=== PATIENT | male | born 1970 | race African-American/Black ===

== ENCOUNTER 2022-01-18 20:02 | Emergency (ER) | payer SELFPAY ==
[2022-01-18] MEDS ORDERED: AMOX/CLAV 875 MG/125 MG TABLET PO STA (20:25)
[2022-01-18] MEDS ORDERED: LIDOCAINE 2%-EPI 1:100000 20 ML MDV SUBQ STA (20:26)
--- NOTE | 2022-01-18 21:04 | ED Physician Documentation ---
PD HPI HEAD INJURY - Stated complaint Stated Complaint: HEAD INJ - Chief complaint Chief Complaint: Trauma Hd/Nk - History obtained from History obtained from: Patient - Additional information Additional information: Patient is a 51-year-old male with a history significant for hypertension, not on blood thinners, presenting for evaluation of a head injury and dog bite that occurred just prior to arrival. Patient had 2 dogs at home that were initially playing but then became more aggressive with each other. He stepped into break up the fight. He sustained a bite to the left hand and right ankle. He fell forward and hit his head on a glass table which did not break. He had no loss of consciousness.His last tetanus was in 2016.He denies pain or injury elsewhere. Review of Systems Constitutional: denies: Fever Eyes: denies: Decreased vision Ears: denies: Ear pain Nose: denies: Congestion Cardiac: denies: Chest pain / pressure Respiratory: denies: Dyspnea GI: denies: Abdominal Pain, Vomiting Skin: reports: Laceration (s) Musculoskeletal: reports: Extremity pain. denies: Neck pain, Back pain Neurologic: reports: Head injury. denies: Syncope PD PAST MEDICAL HISTORY - Past Medical History Past Medical History: Yes Cardiovascular: Hypertension, Arrhythmia - Past Surgical History Past Surgical History: Yes General: Hiatal hernia repair Cardiovascular: AICD - Present Medications Home Medications: Ambulatory Orders Medication Instructions Recorded Confirmed Amox/Clav 875/125 [Augmentin] 1 each PO Q12H #10 tablet 01/18/22 Candesartan/Hydrochlorothiazid 1 tab PO BID 01/18/22 01/18/22 [Candesartan-Hctz 32-25 mg Tab] Carvedilol [Coreg] 6.25 mg PO DAILY 01/18/22 01/18/22 - Allergies Allergies/Adverse Reactions: Allergies Allergy/AdvReac Type Severity Reaction Status Date / Time No Known Drug Allergies Allergy Verified 01/18/22 20:06 - Social History Does the pt smoke?: Yes Smoking Status: Current every day smoker Does the pt have substance abuse?: No - Immunizations Immunizations are current?: Yes PD ED PE NORMAL - General General: Alert and oriented X 3, No acute distress, Well developed/nourished - HEENT HEENT: PERRL, EOMI, Ears normal, Pharynx benign, Other (No corado signs or ra ccoon eyes; 2 cm linear laceration to right forehead) - Neck Neck: Supple, no meningeal sign, No bony TTP, C-Spine cleared by NEXUS criteria - Cardiac Cardiac: RRR, No murmur, Strong equal pulses - Respiratory Respiratory: No respiratory distress, Clear bilaterally - Back Back: No spinal TTP - Derm Derm: Warm and dry - Extremities Extremities: Other (Puncture wounds to left hand and right ankle, no bony tenderness, full range of motion at all joints, brisk cap refill With strong distal pulses In all extremities, motor and sensation intact in all extremities) - Neuro Neuro: Alert and oriented X 3, 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, No motor deficit, No sensory deficit, Normal speech Eye Opening: Spontaneous Motor: Obeys Commands Verbal: Oriented GCS Score: 15 - Psych Psych: Normal mood PD ED PE EXPANDED - HEENT HEENT: Head injury HEENT Visual: 1 - laceration, swelling - Extremities AMBROSE UE/Hands Visual: 1 - swelling (contusion), deformity (2 puncture wounds) AMBROSE LE visual: 1 - abrasion Results - Vitals Vitals: Vital Signs - 24 hr 01/18/22 01/18/22 20:06 21:06 Temperature 36.5 C Heart Rate 90 81 Respiratory 16 16 Rate Blood Pressure 149/84 H 138/79 H O2 Saturation 100 99 Oxygen O2 Source Room air Procedures - Laceration (location) R forehead Length in cm: 2.5 Wound type: Linear, Clean Anesthesia: Lidocaine 2% with epi Wound preparation: Chlorhexadine, Irrigated copiously NS Skin layer closure: Interrupted, Sutures - enter # (5) Other: Patient tolerated well, No complications, Neurovascular intact, Tetanus UTD PD MEDICAL DECISION MAKING - ED course Complexity details: re-evaluated patient, d/w patient ED course: Patient evaluated for head injury and dog bite. In regards to his head injury, no indication for emergent CT scan per MIPS criteria.Patient C-spine was cleared by Nexus criteria. Patient did have a laceration to his forehead that was sutured.Patient also had puncture wounds to the left hand and right ankle. No signs of bony injury. Neurovascularly intact, normal range of motion Was present. Patient was started on Augmentin. Wounds were also cleaned and irrigated. Patient was counseled on strict return precautions for any worrisome signs. Patient was ambulatory at discharge. Departure - Departure Disposition: Home, Self Care Clinical Impression: Animal bite of right ankle Dog bite of left hand Qualifiers: Encounter type: initial encounter Qualified Code(s): S61.452A - Open bite of left hand, initial encounter Laceration of forehead without complication Qualifiers: Encounter type: initial encounter Qualified Code(s): S01.81XA - Laceration without foreign body of other part of head, initial encounter Head injury Qualifiers: Encounter type: initial encounter Qualified Code(s): S09.90XA - Unspecified in jury of head, initial encounter Condition: Stable Instructions: ED Contusion Hand, ED Bite Dog, ED Head Injury Closed, ED Laceration Facial Sutr Tape Prescriptions: Amox/Clav 875/125 [Augmentin] 1 each PO Q12H #10 tablet Comments: Axel - You were evaluated for a dog bite as well as head injury. You had a laceration to your forehead that was closed with stitches. You had 5 stitches placed. These should remain in place for 1 week and you can return to the emergency department or an urgent care or to your primary doctor's office for suture removal on January 25.You additionally have injuries related to dog bites. I have started you on an antibiotic. You should take this antibiotic for the next 5 days. I have sent the prescription to [facility] in [place]. Please keep all wounds clean and dry. If you notice any redness, swelling, abnormal drainage, Have increased pain or any other concerns please return to the emergency department for evaluation. Although you did strike your head, I do not think you need imaging of your brain at this time. If you develop headache, confusion, unsteadiness or have other concerns please return to the emergency department for another evaluation.
[2022-01-18 21:07] VITALS: BP 138/79
== END 2022-01-18 21:15 | disposition home or self-care (01) ==
LOC: ED 20:02
DX: S09.90XA Unspecified injury of head, initial encounter (principal); S61.452A Open bite of left hand, initial encounter; S91.051A Open bite, right ankle, initial encounter; S01.81XA Laceration without foreign body of other part of head, initial encounter; W54.0XXA Bitten by dog, initial encounter; W18.39XA Other fall on same level, initial encounter; W22.03XA Walked into furniture, initial encounter; Y93.K9 Activity, other involving animal care; Y92.009 Unspecified place in unspecified non-institutional (private) residence as the place of occurrence of the external cause; F17.200 Nicotine dependence, unspecified, uncomplicated
CPT/HCPCS: 12011; 99282; A9270